=== PATIENT | female | born 1945 | race Caucasian/White ===

== ENCOUNTER 2018-03-25 06:22 | Day surgery (SDC) | payer OTHER, BC ==
[2018-03-20 14:43] VITALS: BMI 24.1
[2018-03-25] MEDS ORDERED: TETRACAINE 0.5% OPHTH SOLN 2 ML BOTTLE ONE (07:12)
[2018-03-25] MEDS ORDERED: BUPIVACAINE HCL/PF 0.5% (5MG/ML) 10 ML VIAL ONE (07:12)
[2018-03-25] MEDS ORDERED: THROMBIN (BOVINE) 5,000 UNIT VIAL TP ONE (07:12)
[2018-03-25] MEDS ORDERED: OXYMETAZOLINE 0.05% NASAL SOLUTION 15 ML BOTTLE NS ONE (07:12)
[2018-03-25] MEDS ORDERED: BACITRACIN 3.5 GM OPTHALMIC OINT TUBE ONE (07:12)
[2018-03-25] MEDS ORDERED: POVIDONE-IODINE 5% OPHTHALMIC PREP 30 ML SOLUTION ONE (07:12)
[2018-03-25] MEDS ORDERED: LIDOCAINE 1%/EPI 1:100000 (20 ML MULTI DOSE VIAL) ONE (07:13)
[2018-03-25] MEDS ORDERED: MIDAZOLAM HCL 2 MG/2 ML SINGLE DOSE VIAL ONE (07:29)
[2018-03-25] MEDS ORDERED: PROPOFOL 20 ML ONE ×3 (07:43→08:58)
[2018-03-25] MEDS ORDERED: SUCCINYLCHOLINE CHLORIDE 200 MG/10 ML VIAL ONE (07:43)
[2018-03-25] MEDS ORDERED: LIDOCAINE HCL 2% 100 MG/5 ML DISP.SYRIN ONE (07:54)
[2018-03-25] MEDS ORDERED: ONDANSETRON 4 MG/2 ML VIAL ONE (07:54)
[2018-03-25] MEDS ORDERED: DEXAMETHASONE SOD PHOSPHATE 4 MG/1 ML VIAL ONE (07:54)
[2018-03-25] MEDS ORDERED: ceFAZolin SODIUM 1 GM VIAL ONE (08:00)
[2018-03-25] MEDS ORDERED: PHENYLEPHRINE HCL 10 MG/1 ML SINGLE DOSE VIAL ONE (08:22)
[2018-03-25] MEDS ORDERED: GELATIN, ABSORBABLE 100 EACH SPONGE TP ONE (08:33)
[2018-03-25] MEDS ORDERED: ONDANSETRON 4 MG/2 ML VIAL IVPUSH PRN (09:22)
[2018-03-25] MEDS ORDERED: oxyCODONE HCL 5 MG TABLET PO PRN (09:22)
[2018-03-25] MEDS ORDERED: LACTATED RINGERS SOLUTION 1,000 ML IV SCH (09:30)
[2018-03-25] MEDS ORDERED: ONDANSETRON 4 MG/2 ML VIAL IVPUSH ONE (10:02)
--- NOTE | 2018-03-25 10:32 | OP ---
DATE OF OPERATION: 03/25/2018 PREOPERATIVE DIAGNOSIS: Nasolacrimal obstruction, left, with tearing. POSTOPERATIVE DIAGNOSIS: Nasolacrimal obstruction, left, with tearing. PROCEDURE: 1. Dacryocystorhinostomy, left. 2. Silicone intubation, left lachrymal system. 3. Lachrymal sac biopsy. 4. Endoscopy. SURGEON: Josee Infante MD ANESTHESIA: LMA. ESTIMATED BLOOD LOSS: 10-20 mL. COMPLICATIONS: None. OPERATIVE REPORT: Patient brought to the operating room, placed on the operating room table. Vital signs monitored by Anesthesia. Patient was placed under LMA anesthesia. Tear trough incision was marked in the left tear trough. Timeout was performed, after which a 50/50 mixture of 2% Xylocaine, 1:100,000 epinephrine, 0.5% Marcaine was injected subcutaneously in the nasal third of the upper and lower lids, the area of the tear trough, lateral wall of the nose, dorsal nasal artery, anterior lachrymal crest, and again in the septum and external nares. As best as could be seen, the septum was deviated highly toward the left, so the nose was packed with cottonoids moistened with Afrin to decompress the mucosal tissue. The patient was prepped and draped in sterile fashion exposing both eyes. Right eye was closed manually. Incision was made in the tear trough. This was carried down to the anterior lacrimal crest. Periosteum over the nasolacrimal crest was incised, as was the medial canthal tendon partially. Periosteum was reflected laterally, exposing the lacrimal sac fossa, which was penetrated to the maxillary lacrimal bone junction. Upbiting Kerrison rongeurs were used to create an osteotomy extending from the nasolacrimal duct to the medial canthal tendon which exposed the nasal mucosa, which was intact. It was injected at this point with 2% Xylocaine, 1:100,000 epinephrine. The upper and lower punctae were dilated and intubated with probes, tenting the medial wall of the sac medially. The sac was incised with a 12-blade, and anterior and posterior lacrimal sac flaps were created with relaxing incisions. Posterior lacrimal sac flap was biopsied, sent for lacrimal sac biopsy. The anterior lacrimal sac flap was secured with a double-arm 4-0 chromic suture. Packing was removed from the nose. Further injections were performed in the middle meatus which was now visible, and the nose was again packed. These packings were then subsequently removed, and periosteal elevator was inserted as a backstop for the nasal mucosa which was incised vertically with a 12-blade and then relaxing incisions used to create anterior and posterior mucosal flaps. Posterior mucosal flap was trimmed. Anterior mucosal flap was created with relaxing incisions. The system was then intubated with Clay probes through the upper and lower punctae into the internal common canaliculus which was dilated directly, and the probes were retrieved through the left external naris with a Clay hook intubating the system. Bleeding areas in the posterior nasal mucosa and bone were packed with Gelfoam moistened with thrombin and cottonoids while the silicone stent was tied with a locking knot at the external naris. Once hemostasis was achieved, the anterior lacrimal sac flap was secured to the anterior nasal mucosa flap with double-arm 4-0 chromic suture with an additional bite of periosteum anterior to the flap to tent it away from the internal osteum. Additional interrupted 4-0 chromic suture was placed, and the subcuticular tissue was closed with 5-0 chromic and the skin with running 6-0 plain suture with plastic technique. Prolene 6-0 was used to secure the stents to the external nares, minimal tension on the loop of the left medial canthus. Prior to tying the Prolene, the stent was moved freely through the system and found to be completely mobile without any kind of restriction. Once the Prolene was tied, the endoscope was introduced. Gelfoam was removed, and good visualization of the internal osteum was identified, with good positioning of the tubes, good hemostasis, and a high septal deviation was noted. Afrin was sprayed in the nose. Bacitracin ointment was placed on the sutures, and the patient was taken to the recovery room after being awakened from anesthesia in stable condition. JOSEE INFANTE M.D. [id number]
[2018-03-25 13:33] VITALS: PULSE 82; TEMP 98.7
[2018-03-25 14:15] VITALS: BP 147/77
--- NOTE | 2018-03-27 11:58 | PATH ---
Surgical Pathology Report Patient Name: ANG PRICE [facility]. Rec. #: [id number] /Age/Gender: 1945 (Age: 73) / F Account: [id number] Location: [facility] Taken: 03/25/2018 Received: 03/25/2018 Reported: 03/27/2018 Physicians: Stefan Lopez Specimen(s) Received A: LEFT LACRIMAL SAC BIOPSY B: LEFT NASAL MUCOSA Clinical History Left blocked tear duct Final Diagnosis A. LEFT LACRIMAL SAC, BIOPSY: HYPERVASCULAR FIBROUS TISSUE WITH FOCAL LYMPHOCYTIC INFILTRATE. B. LEFT NASAL MUCOSA, BIOPSY: NASAL MUCOSA DEVOID OF EPITHELIUM SHOWING SUBMUCOSA SEROMUCINOUS GLANDS WITH FOCAL FIBROSIS. Electronically Signed Smita Marc M.D. Gross Description A. Received in formalin, labeled "left lacrimal sac biopsy" is a enciso, irregular portion of soft tissue measuring 0.3 cm. in greatest dimension. The specimen is submitted in toto in one cassette. B. Received in formalin labeled "left nasal mucosa," is a 0.6 centimeter in greatest dimension enciso-brown portion of soft tissue which is submitted in toto in one cassette. /03/26/2018 saudi/03/26/2018
== END 2018-03-25 11:55 | disposition home or self-care (01) ==
LOC: FASU 06:22
PROVIDERS: ATTEND Ophthalmology
PROC: 09JY8ZZ Inspection of Sinus, Via Natural or Artificial Opening Endoscopic (ICD-10-PCS; 2018-03-25)
PROC: 081Y0Z3 Bypass Left Lacrimal Duct to Nasal Cavity, Open Approach (ICD-10-PCS; principal; 2018-03-25 08:18)
DX: H04.552 Acquired stenosis of left nasolacrimal duct (principal)
CPT/HCPCS: 82962; 88304-TC; 94760

== ENCOUNTER 2021-04-19 05:02 | Day surgery (SDC) | payer OTHER, BC ==
[2021-04-14 16:57] VITALS: BMI 25.4
[2021-04-19 09:58] VITALS: TEMP 98
[2021-04-19 11:02] VITALS: BP 173/72; PULSE 69
== END 2021-04-19 11:01 | disposition home or self-care (01) ==
LOC: JASU-ENDO 05:02
PROVIDERS: ATTEND Internal Medicine Gastroenterology
PROC: 0DB98ZX Excision of Duodenum, Via Natural or Artificial Opening Endoscopic, Diagnostic (ICD-10-PCS; 2021-04-19)
PROC: 0DB78ZX Excision of Stomach, Pylorus, Via Natural or Artificial Opening Endoscopic, Diagnostic (ICD-10-PCS; 2021-04-19)
PROC: 0DB48ZX Excision of Esophagogastric Junction, Via Natural or Artificial Opening Endoscopic, Diagnostic (ICD-10-PCS; 2021-04-19)
PROC: 0DJD8ZZ Inspection of Lower Intestinal Tract, Via Natural or Artificial Opening Endoscopic (ICD-10-PCS; principal; 2021-04-19 09:00)
DX: Z12.11 Encounter for screening for malignant neoplasm of colon (principal); K57.30 Diverticulosis of large intestine without perforation or abscess without bleeding; K59.89 Other specified functional intestinal disorders; K22.2 Esophageal obstruction; K44.9 Diaphragmatic hernia without obstruction or gangrene; K29.50 Unspecified chronic gastritis without bleeding; D17.5 Benign lipomatous neoplasm of intra-abdominal organs; K21.9 Gastro-esophageal reflux disease without esophagitis; Z86.010 Personal history of colon polyps; Z80.0 Family history of malignant neoplasm of digestive organs; Z83.71 Family history of colonic polyps
CPT/HCPCS: 43239; G0105; 88305-TC; 88342-TC

== ENCOUNTER 2021-07-09 06:57 | Inpatient (IN) | payer OTHER, BC ==
[2021-07-09 07:59] LABS: EPI CELLS 2 /uL (0-25.1); HYALINE CASTS 0 /uL (0-3.1); URINE APPEARANCE CLEAR; URINE BACTERIA 5 /uL (0-1359); URINE BILIRUBIN NEGATIVE (NEGATIVE); URINE COLOR YELLOW; URINE GLUCOSE (UA) NEGATIVE (NEGATIVE); URINE KETONE NEGATIVE (NEGATIVE); URINE LEUK ESTERASE NEGATIVE (NEGATIVE); URINE NITRITE NEGATIVE (NEGATIVE); URINE PROTEIN 1+ (NEGATIVE); URINE RBC 1 /uL (0-23.9); URINE UROBILINOGEN 0.2 mg/dL (0.2-1.0); URINE WBC 4 /uL (0-25.8)
[2021-07-09 08:50] LABS: BASO % 0.6 % (0-2.0); EOS % 4.2 % (0-4.5); HEMATOCRIT 35.3 % (32.4-45.2); HEMOGLOBIN 12.2 GM/dL (10.7-15.3); LYMPH % 18.8 % (8-40); MCH 31.9 pg (25.7-33.7); MCHC 34.6 g/dl (32.0-36.0); MEAN CELL VOLUME 92.4 fl (80-96); MEAN PLT VOLUME 7.7 fl (7.5-11.1); MONO % 9.3 % (3.8-10.2); NEUT % 67.1 % (42.8-82.8); PLATELET COUNT 277 10^3/uL (134-434); RBC 3.82 M/mm3 (3.60-5.2); RDW 12.8 % (11.6-15.6); WHITE BLOOD COUNT 6.1 K/mm3 (4.0-10.0)
[2021-07-09 08:56] LABS: INR 0.93 (0.83-1.09); PROTHROMBIN TIME (PATIENT) 11.5 SEC (9.7-13.0)
[2021-07-09 08:59] LABS: ACTIVATED PTT 29.2 SECONDS (25.2-36.5)
[2021-07-09 09:04] LABS: CHOLESTEROL 206 mg/dL (50-200)
[2021-07-09 09:05] LABS: TRIGLYCERIDES 42 mg/dL (0-150)
[2021-07-09 09:06] LABS: LDL CHOLESTEROL (ONLY SJRH) 95 mg/dL (5-100)
[2021-07-09 09:08] LABS: HDL CHOLESTEROL 97 mg/dL (40-60)
[2021-07-09 09:12] LABS: CHLORIDE 107 mmol/L (98-107); SODIUM 139 mmol/L (136-145)
[2021-07-09 09:14] LABS: ALBUMIN 3.6 g/dl (3.4-5.0); ANION GAP 5 MMOL/L (8-16); BLOOD UREA NITROGEN 23.5 mg/dL (7-18); CALCIUM 8.3 mg/dL (8.5-10.1); CO2 27 mmol/L (21-32); GLUCOSE,RANDOM 133 mg/dL (74-106)
[2021-07-09 09:17] LABS: CREATININE 1.2 mg/dL (0.55-1.3); SGOT/AST 17 U/L (15-37); SGPT/ALT 13 U/L (13-61)
[2021-07-09 09:20] LABS: ALK PHOS 57 U/L (45-117); BILIRUBIN,TOTAL 0.8 mg/dL (0.2-1); TOT PROT 7.8 g/dl (6.4-8.2)
[2021-07-09] MEDS: SODIUM CHLORIDE 1,000 ML IV SCH (09:20)
[2021-07-09] MEDS ORDERED: MECLIZINE HCL 25 MG TABLET (FP) PO ONE ×2 (09:27→10:54)
[2021-07-09] MEDS ORDERED: MECLIZINE HCL 25 MG TABLET (FP) ONE ×2 (10:04→11:02)
[2021-07-09] MEDS ORDERED: ONDANSETRON 4 MG/2 ML VIAL IVPUSH ONE (10:54)
[2021-07-09] MEDS ORDERED: ONDANSETRON 4 MG/2 ML VIAL ONE (11:02)
[2021-07-09] MEDS ORDERED: diazePAM 5 MG TABLET PO ONE (12:04)
[2021-07-09] MEDS ORDERED: diazePAM 5 MG TABLET ONE (12:32)
[2021-07-09] MEDS ORDERED: amLODIPine BESYLATE 5 MG TABLET (FP) PO SCH (13:00)
[2021-07-09] MEDS ORDERED: ONDANSETRON 4 MG/2 ML VIAL IVPUSH PRN (13:01)
[2021-07-09] MEDS ORDERED: amLODIPine BESYLATE 5 MG TABLET (FP) ONE (13:10)
[2021-07-09] MEDS ORDERED: ENALAPRIL MALEATE 5 MG TABLET ONE (13:10)
[2021-07-09] MEDS: ENALAPRIL MALEATE 10 MG TABLET PO SCH ×2 (13:20→22:46)
[2021-07-09] MEDS ORDERED: FUROSEMIDE 40 MG/4 ML INJECTABLE VIAL IVPUSH ONE (13:30)
[2021-07-09] MEDS ORDERED: FUROSEMIDE 40 MG/4 ML INJECTABLE VIAL ONE (14:10)
[2021-07-09] MEDS ORDERED: NITROGLYCERIN 2% OINTMENT - 1GM PACKET TD PRN (16:17)
[2021-07-09] MEDS: INSULIN SLIDING SCALE (NOVOLOG) 1 VIAL SQ SCH (18:58)
[2021-07-09] MEDS: INSULIN (LEVEMIR) 100 UNITS/ML UNITS SQ SCH (23:00)
[2021-07-09 23:30] VITALS: BMI 24.0
[2021-07-10] MEDS: INSULIN SLIDING SCALE (NOVOLOG) 1 VIAL SQ SCH ×2 (06:24→11:29)
[2021-07-10] MEDS: INSULIN (LEVEMIR) 100 UNITS/ML UNITS SQ SCH (06:28)
[2021-07-10] MEDS ORDERED: LEVOTHYROXINE NA 75 MCG TABLET (FP) PO SCH (07:00)
[2021-07-10 08:10] LABS: HEMATOCRIT 35.2 % (32.4-45.2); HEMOGLOBIN 12.3 GM/dL (10.7-15.3); MCH 32.5 pg (25.7-33.7); MCHC 34.9 g/dl (32.0-36.0); MEAN CELL VOLUME 93.1 fl (80-96); MEAN PLT VOLUME 8.5 fl (7.5-11.1); PLATELET COUNT 276 10^3/uL (134-434); RBC 3.78 M/mm3 (3.60-5.2); RDW 12.7 % (11.6-15.6); WHITE BLOOD COUNT 6.3 K/mm3 (4.0-10.0)
[2021-07-10] MEDS ORDERED: MECLIZINE HCL 25 MG TABLET (FP) PO PRN (08:14)
[2021-07-10 08:23] LABS: CHLORIDE 106 mmol/L (98-107); SODIUM 138 mmol/L (136-145)
[2021-07-10 08:33] LABS: CALCIUM 8.2 mg/dL (8.5-10.1)
[2021-07-10 08:34] LABS: ALBUMIN 3.3 g/dl (3.4-5.0); ANION GAP 8 MMOL/L (8-16); BLOOD UREA NITROGEN 20.1 mg/dL (7-18); CO2 24 mmol/L (21-32); GLUCOSE,RANDOM 173 mg/dL (74-106); MAGNESIUM 2.1 mg/dL (1.8-2.4)
[2021-07-10 08:36] LABS: SGPT/ALT 14 U/L (13-61)
[2021-07-10 08:37] LABS: CREATININE 1.1 mg/dL (0.55-1.3)
[2021-07-10 08:38] LABS: BILIRUBIN,TOTAL 0.9 mg/dL (0.2-1); TOT PROT 6.9 g/dl (6.4-8.2)
[2021-07-10 08:39] LABS: ALK PHOS 53 U/L (45-117)
[2021-07-10 08:51] VITALS: BP 143/66; PULSE 62; TEMP 98.7
[2021-07-10 08:55] LABS: SGOT/AST < 3 U/L (15-37)
[2021-07-10] MEDS ORDERED: ENOXAPARIN NA (PORCINE) 40 MG/0.4 ML DISP.SYRIN SQ SCH (10:00)
[2021-07-10] MEDS ORDERED: ASPIRIN COATED 81 MG TABLET.EC PO SCH (10:00)
[2021-07-10] MEDS ORDERED: PANTOPRAZOLE 20 MG TABLET PO SCH (10:00)
[2021-07-10] MEDS ORDERED: metoPROLOL SUCCINATE 25 MG TAB.SR.24H (FP) PO SCH (10:00)
[2021-07-10] MEDS ORDERED: EZETIMIBE 10 MG TABLET (FP) PO SCH (10:00)
[2021-07-10] MEDS: SODIUM CHLORIDE 1,000 ML IV SCH (10:24)
[2021-07-10] MEDS: ENALAPRIL MALEATE 10 MG TABLET PO SCH (10:26)
[2021-07-10] MEDS ORDERED: INSULIN (NOVOLOG) ASPART 100 UNITS/ML 10ML VIAL ONE (11:27)
== END 2021-07-10 14:30 | disposition home or self-care (01) | DRG 149 ==
LOC: JER 06:57 → JERBED 12:28 → J4W 22:33
PROVIDERS: ADMIT Student in an Organized Health Care Education/Training Program; ATTEND Internal Medicine
DX: R42 Dizziness and giddiness (principal); E11.9 Type 2 diabetes mellitus without complications; E03.9 Hypothyroidism, unspecified; M54.30 Sciatica, unspecified side; E55.9 Vitamin D deficiency, unspecified; Z79.4 Long term (current) use of insulin; I10 Essential (primary) hypertension
CPT/HCPCS: 36415; 70450-TC; 70551-TC; 71045-TC-FY; 80053; 80061; 81003; 82550; 82962; 83036; 83735; 84443; 84484; 85025; 85027; 85610; 85730; 86850; 86870; 86900; 86901; 86902; 93005; 93010; 97116-GP; 97161-GP; 99285-25; C9803; U0003; U0005